=== PATIENT | female | born 1950 | race Caucasian/White ===

== ENCOUNTER 2020-09-06 10:00 | Outpatient (RCR) | payer MEDICARE, SELFPAY ==
[2020-09-06] MEDS: COVID-19 VACC, MRNA(PFIZER)/PF 30 MCG/0.3 ML SYRINGE IM (09:34)
[2020-09-27] MEDS: COVID-19 VACC, MRNA(PFIZER)/PF 30 MCG/0.3 ML SYRINGE IM (09:17)
== END 2020-09-06 23:59 ==
LOC: IMMUN 10:00
PROVIDERS: Visit Provider Family Medicine
DX: Z23 Encounter for immunization (principal)
CPT/HCPCS: 0001A; 0002A